=== PATIENT | male | born 1955 | race Caucasian/White ===

== ENCOUNTER 2016-08-22 12:21 | Emergency (ER) | payer BC ==
[2016-08-22] MEDS ORDERED: MECLIZINE 12.5 MG TABLET PO STA (14:45)
[2016-08-22] MEDS ORDERED: MECLIZINE 12.5 MG TABLET PO ONE (14:50)
== END 2016-08-22 15:02 | disposition home or self-care (01) ==
DX: R42 Dizziness and giddiness (principal); H91.92 Unspecified hearing loss, left ear; I10 Essential (primary) hypertension; K43.9 Ventral hernia without obstruction or gangrene
CPT/HCPCS: 99283; A9270

== ENCOUNTER 2016-09-21 08:35 | Outpatient (CLI) | payer BC | END 2016-09-21 08:36 | disposition home or self-care (01) | DX: G47.33 Obstructive sleep apnea (adult) (pediatric) (principal) ==

== ENCOUNTER 2016-11-01 08:00 | Outpatient (CLI) | payer BC | END 2016-11-01 08:01 | disposition home or self-care (01) | DX: M25.522 Pain in left elbow (principal) ==

== ENCOUNTER 2016-11-21 06:56 | Outpatient (CLI) | payer BC | END 2016-11-21 06:57 | disposition home or self-care (01) | DX: Z79.899 Other long term (current) drug therapy (principal); E55.9 Vitamin D deficiency, unspecified ==

== ENCOUNTER 2017-05-04 09:45 | Outpatient (CLI) | payer BC ==
--- NOTE | 2017-05-04 10:42 | XRAY Report ---
THREE-VIEW RIGHT ELBOW: 05/04/2017 CLINICAL INDICATION: Pain. FINDINGS: AP, lateral, oblique views of the right elbow demonstrate no evidence of fracture or dislo cation. There is a tiny ossific body seen between the radius and the ulna, likely representing an ac cessory ossicle. There is no evidence of acute fracture. No effusion is seen. IMPRESSION: NO EVIDENCE OF FRACTURE. JOB #: [id number] EXT JOB #:[id number]
== END 2017-05-04 09:46 | disposition home or self-care (01) ==
LOC: DI 09:45
PROVIDERS: ATTEND Physician Assistant Medical
DX: M25.521 Pain in right elbow (principal)

== ENCOUNTER 2017-05-14 06:10 | Outpatient (CLI) | payer BC ==
[2017-05-14 06:31] LABS: BASOPHILS % (AUTO) 0.6 %; EOSINOPHILS # (AUTO) 0.9 10^3/uL (0.0-0.7); EOSINOPHILS % (AUTO) 10.7 %; HCT - HEMATOCRIT 49.1 % (42.0-52.0); HGB - HEMOGLOBIN 16.8 g/dL (14.0-18.0); LYMPHOCYTES % (AUTO) 24.7 %; MEAN CORPUSCULAR HEMOGLOBIN 30.4 pg (27.0-31.0); MEAN CORPUSCULAR HGB CONC 34.1 g/dL (32.0-36.0); MEAN PLATELET VOLUME 8.2 fL (7.4-11.4); MONOCYTES # (AUTO) 0.9 10^3/uL (0.0-1.0); MONOCYTES % (AUTO) 11.4 %; NEUTROPHILS # (AUTO) 4.3 10^3/uL (1.5-6.6); NEUTROPHILS % (AUTO) 52.6 %; NUCLEATED RED BLOOD CELLS AUTO 0.1 /100WBC; RED BLOOD COUNT 5.52 10^6/uL (4.70-6.10); RED CELL DISTRIBUTION WIDTH 13.3 % (12.0-15.0); UNCORRECTED WHITE BLOOD COUNT 8.1 x10^3/uL; WHITE BLOOD COUNT 8.1 x10^3/uL (4.8-10.8)
[2017-05-14 06:53] LABS: ALBUMIN/GLOBULIN RATIO 1.5 (1.0-2.2); BILIRUBIN,TOTAL 0.8 mg/dL (0.2-1.0); BUN - BLOOD UREA NITROGEN 17 mg/dL (6-20); CARBON DIOXIDE - CO2 23 mmol/L (21-32); CHLORIDE 106 mmol/L (101-111); CHOL/HDL RATIO 3.7 (<5.0); CHOLESTEROL 103 mg/dL; CREATININE 1.2 mg/dL (0.6-1.2); GFR - MDRD 62 (>89); GLUCOSE 109 mg/dL (70-100); HDL CHOLESTEROL 28 mg/dL; POTASSIUM 4.2 mmol/L (3.5-5.0); SODIUM 138 mmol/L (135-145); TOTAL PROTEIN 6.7 g/dL (6.7-8.2); TRIGLYCERIDES 102 mg/dL; VLDL CHOLESTEROL 20 mg/dL
== END 2017-05-14 06:11 | disposition home or self-care (01) ==
LOC: LAB 06:10
PROVIDERS: ATTEND Physician Assistant Medical
DX: Z12.5 Encounter for screening for malignant neoplasm of prostate (principal); E55.9 Vitamin D deficiency, unspecified; R73.9 Hyperglycemia, unspecified; E78.5 Hyperlipidemia, unspecified; I10 Essential (primary) hypertension; Z79.899 Other long term (current) drug therapy
CPT/HCPCS: 36415; 80053; 80061; 82306; 84153; 84443; 85025

== ENCOUNTER 2017-07-06 08:35 | Outpatient (CLI) | payer BC | END 2017-07-06 08:36 | disposition home or self-care (01) | LOC: SC 08:35 | PROVIDERS: ATTEND Nurse Practitioner Family | DX: G47.33 Obstructive sleep apnea (adult) (pediatric) (principal) | CPT/HCPCS: 99212; 99214 ==

== ENCOUNTER 2018-01-24 08:31 | Outpatient (CLI) | payer BC | END 2018-01-24 08:32 | disposition home or self-care (01) | LOC: SC 08:31 | PROVIDERS: ATTEND Nurse Practitioner Family | DX: G47.33 Obstructive sleep apnea (adult) (pediatric) (principal); R53.83 Other fatigue | CPT/HCPCS: 99212; 99214 ==

== ENCOUNTER → 2018-06-01 | Outpatient (CLI) | payer BC ==
[2018-06-01 13:11] LABS: BASOPHILS # (AUTO) 0.1 10^3/uL (0.0-0.1); BASOPHILS % (AUTO) 1.3 %; EOSINOPHILS # (AUTO) 0.8 10^3/uL (0.0-0.7); EOSINOPHILS % (AUTO) 11.4 %; HGB - HEMOGLOBIN 16.5 g/dL (14.0-18.0); LYMPHOCYTES # (AUTO) 1.4 10^3/uL (1.5-3.5); LYMPHOCYTES % (AUTO) 19.9 %; MEAN CORPUSCULAR HEMOGLOBIN 31.1 pg (27.0-31.0); MEAN CORPUSCULAR HGB CONC 35.1 g/dL (32.0-36.0); MEAN CORPUSCULAR VOLUME 88.8 fL (80.0-94.0); MEAN PLATELET VOLUME 8.6 fL (7.4-11.4); MONOCYTES # (AUTO) 0.7 10^3/uL (0.0-1.0); MONOCYTES % (AUTO) 9.9 %; NEUTROPHILS % (AUTO) 57.5 %; PLT - PLATELET COUNT 257 10^3/uL (130-450); RED BLOOD COUNT 5.31 10^6/uL (4.70-6.10); RED CELL DISTRIBUTION WIDTH 13.5 % (12.0-15.0)
[2018-06-01 13:33] LABS: ALBUMIN 4.1 g/dL (3.2-5.5); ALBUMIN/GLOBULIN RATIO 1.4 (1.0-2.2); ALKALINE PHOSPHATASE 83 IU/L (42-121); ALT ALANINE AMINOTRANSFERASE 26 IU/L (10-60); AST ASPARTATE AMINOTRANSFERASE 26 IU/L (10-42); BUN - BLOOD UREA NITROGEN 17 mg/dL (6-20); CALCIUM 9.2 mg/dL (8.5-10.3); CARBON DIOXIDE - CO2 27 mmol/L (21-32); CHLORIDE 106 mmol/L (101-111); CHOL/HDL RATIO 3.5 (<5.0); CHOLESTEROL 117 mg/dL; CREATININE 1.1 mg/dL (0.6-1.2); GFR - MDRD 68 (>89); GLUCOSE 103 mg/dL (70-100); HDL CHOLESTEROL 33 mg/dL; LDL CHOLESTEROL,CALCULATED 70 mg/dL; LDL/HDL RATIO 2.1 (<3.6); SODIUM 141 mmol/L (135-145); TOTAL PROTEIN 7.1 g/dL (6.7-8.2); VLDL CHOLESTEROL 14 mg/dL
[2018-06-01 14:26] LABS: HB2 TOTAL 17.7 g/dL; HEMOGLOBIN A1C 0.66 g/dL; HEMOGLOBIN A1C % 5.6 % (4.6-6.2)
== END ==
LOC: LAB.R 08:00
PROVIDERS: ATTEND Physician Assistant Medical
DX: Z00.00 Encounter for general adult medical examination without abnormal findings (principal); Z12.5 Encounter for screening for malignant neoplasm of prostate; Z79.899 Other long term (current) drug therapy; E55.9 Vitamin D deficiency, unspecified; R73.9 Hyperglycemia, unspecified; E66.3 Overweight; F32.9 Major depressive disorder, single episode, unspecified; E78.2 Mixed hyperlipidemia; I10 Essential (primary) hypertension
CPT/HCPCS: 80053; 80061; 82306; 83036; 83721; 84153; 85025

== ENCOUNTER 2018-08-11 01:40 | Emergency (ER) | payer BC ==
[2018-08-11 01:52] VITALS: BP 158/83
[2018-08-11] MEDS ORDERED: DEXAMETHASONE 10 MG/ML VIAL PO STA (02:00)
[2018-08-11] MEDS ORDERED: CHERRY SYRUP 10 ML UDC PO ONE (02:05)
--- NOTE | 2018-08-11 02:06 | ED Physician Documentation ---
History of Present Illness - Stated complaint Stated Complaint: ITCH ALL OVER,BEATA HANDS SWOLLEN - Chief complaint Chief Complaint: General - History obtained from History obtained from: Patient - History of Present Illness Timing: Today - Additonal information Additional information: 63-year-old male has been on a course of Septra for the past 14 days and took the last pill yesterday. Today he was at work at [employer] on the swing shift when he began to experience some swelling and itching in his hands and feet. He went into medical at [facility] with non-specific hand swelling. He developed worsening itching and swelling and itching in the feet and the backs of this thighs. He went home and his gave him some benadryl he took 50mg just before coming to the ED. He has not taken septra before and he was taking it to shrink and area on his back, that has become chronically infected, before removing it. He was otherwise well earlier today. Review of Systems Constitutional: denies: Fever Eyes: denies: Decreased vision Ears: denies: Ear pain Nose: denies: Rhinorrhea / runny nose, Congestion Throat: denies: Sore throat Respiratory: denies: Dyspnea, Cough GI: denies: Abdominal Pain, Nausea, Vomiting : denies: Dysuria, Frequency Skin: reports: Rash Musculoskeletal: reports: Extremity swelling. denies: Neck pain, Back pain Neurologic: denies: Generalized weakness, Focal weakness, Numbness PD PAST MEDICAL HISTORY - Past Medical History Past Medical History: No Cardiovascular: Hypertension, High cholesterol Respiratory: None Neuro: None Endocrine/Autoimmune: None GI: GERD HEENT: None Psych: None Musculoskeletal: None Derm: None - Past Surgical History Past Surgical History: Yes General: Other Ortho: Carpal Tunnel surgery, Other - Present Medications Home Medications: Ambulatory Orders Medication Instructions Recorded Confirmed Meclizine [Antivert] 25 mg PO Q6H PRN #15 tablet 08/22/16 predniSONE [Deltasone] 60 mg PO DAILY 7 Days tablet 08/22/16 predniSONE [Deltasone] 10 mg PO ONCE #26 tablet 08/11/18 - Allergies Allergies/Adverse Reactions: Allergies Allergy/AdvReac Type Severity Reaction Status Date / Time latex Allergy Rash Verified 08/11/18 01:51 - Social History Does the pt smoke?: No Smoking Status: Never smoker Does the pt drink ETOH?: No Does the pt have substance abuse?: No - Immunizations Immunizations are current?: Yes - POLST Patient has POLST: No PD ED PE NORMAL - Vitals Vital signs reviewed: Yes (hypertensive ) - General General: Alert and oriented X 3, No acute distress, Well developed/nourished - HEENT HEENT: Atraumatic, PERRL, EOMI - Neck Neck: Supple, no meningeal sign, No bony TTP - Cardiac Cardiac: RRR, No murmur - Respiratory Respiratory: No respiratory distress, Clear bilaterally - Abdomen Abdomen: Soft, Non tender - Back Back: No CVA TTP, No spinal TTP - Derm Derm: Other (The hands are swollen in a glove like distribution extending to the volar wrist with erythema and a dusky kendall color. I am not able to appreciate the same degree of involvment of the posterior thigh. ) - Extremities Extremities: No deformity - Neuro Neuro: Alert and oriented X 3, No motor deficit, No sensory deficit, Normal speech Eye Opening: Spontaneous Motor: Obeys Commands Verbal: Oriented GCS Score: 15 - Psych Psych: Normal mood, Normal affect Results - Vitals Vitals: Vital Signs - 24 hr 08/11/18 01:49 Temperature 36.6 C Heart Rate 85 Respiratory 17 Rate Blood Pressure 158/83 H O2 Saturation 98 Oxygen O2 Source Room air PD MEDICAL DECISION MAKING - ED course Complexity details: considered differential, d/w patient ED course: 63-year-old male recently on a course of Septra has developed swelling and itching in his hands and feet I suspect this is a reaction to the Septra. He has taking 50 mg of Benadryl at home prior to coming here and he is administered dexamethasone 10 mg orally here in the emergency department. We will place him on a course of prednisone as a taper to start tomorrow. I have encouraged patient to continue to take the Benadryl 25-50 mg every 6 hours for the next 2 days. Departure - Departure Disposition: 01 Home, Self Care Clinical Impression: Allergic drug reaction Qualifiers: Encounter type: initial encounter Qualified Code(s): T78.40XA - Allergy, unspecified, initial encounter Condition: Stable Instructions: ED Drug React Allergic Follow-Up: Vandana Monsalve PA-C [Primary Care Provider] - Prescriptions: predniSONE [Deltasone] 10 mg PO ONCE #26 tablet Comments: Today it appears you have had a reaction to Septra. These reactions can be fulminant and the recommendation is that you discontinue the use of the Septra and take Benadryl 25-50 mg every 6 hours for the next 2 days. In addition this morning were given dexamethasone 10 mg orally and a prescription for a prednisone taper.
== END 2018-08-11 02:18 | disposition home or self-care (01) ==
LOC: ED 01:40
DX: R22.9 Localized swelling, mass and lump, unspecified (principal); T36.8X5A Adverse effect of other systemic antibiotics, initial encounter; I10 Essential (primary) hypertension; E78.00 Pure hypercholesterolemia, unspecified
CPT/HCPCS: 99283; A9270

== ENCOUNTER 2019-01-31 08:15 | Outpatient (CLI) | payer BC | END 2019-01-31 08:16 | disposition home or self-care (01) | LOC: SC 08:15 | PROVIDERS: ATTEND Nurse Practitioner Family | DX: G47.33 Obstructive sleep apnea (adult) (pediatric) (principal) | CPT/HCPCS: 99212; 99213 ==

== ENCOUNTER 2019-05-18 06:58 | Outpatient (CLI) | payer BC ==
[2019-05-18 07:45] LABS: ALBUMIN 4.3 g/dL (3.2-5.5); ALBUMIN/GLOBULIN RATIO 1.4 (1.0-2.2); CALCIUM 9.5 mg/dL (8.5-10.3); CREATININE 1.2 mg/dL (0.6-1.2); TOTAL PROTEIN 7.3 g/dL (6.7-8.2)
[2019-05-18 07:52] LABS: BASOPHILS # (AUTO) 0.1 10^3/uL (0.0-0.1); BASOPHILS % (AUTO) 1.9 %; EOSINOPHILS # (AUTO) 0.9 10^3/uL (0.0-0.7); EOSINOPHILS % (AUTO) 12.4 %; HGB - HEMOGLOBIN 17.8 g/dL (14.0-18.0); LYMPHOCYTES # (AUTO) 1.6 10^3/uL (1.5-3.5); LYMPHOCYTES % (AUTO) 22.8 %; MEAN CORPUSCULAR HEMOGLOBIN 30.3 pg (27.0-31.0); MEAN CORPUSCULAR HGB CONC 33.8 g/dL (32.0-36.0); MEAN CORPUSCULAR VOLUME 89.8 fL (80.0-94.0); MEAN PLATELET VOLUME 10.4 fL (7.4-11.4); MONOCYTES # (AUTO) 0.8 10^3/uL (0.0-1.0); MONOCYTES % (AUTO) 11.4 %; NEUTROPHILS # (AUTO) 3.5 10^3/uL (1.5-6.6); NEUTROPHILS % (AUTO) 51.2 %; PLT - PLATELET COUNT 260 10^3/uL (130-450); RED BLOOD COUNT 5.87 10^6/uL (4.70-6.10); RED CELL DISTRIBUTION WIDTH 12.7 % (12.0-15.0); WHITE BLOOD COUNT 6.8 x10^3/uL (4.8-10.8)
[2019-05-18 08:03] LABS: T4 (THYROXINE) 5.99 ug/dL (6.09-12.23)
[2019-05-18 08:07] LABS: THYROID STIMULATING HORMONE 3.48 uIU/mL (0.34-5.60)
== END 2019-05-18 06:59 | disposition home or self-care (01) ==
LOC: LAB 06:58
PROVIDERS: ATTEND Family Medicine
DX: F07.81 Postconcussional syndrome (principal); G25.81 Restless legs syndrome; M54.5 Low back pain; F90.9 Attention-deficit hyperactivity disorder, unspecified type; E78.2 Mixed hyperlipidemia; I10 Essential (primary) hypertension; K21.9 Gastro-esophageal reflux disease without esophagitis
CPT/HCPCS: 36415; 80053; 84436; 84443; 84481; 85025

== ENCOUNTER 2020-01-15 09:13 | Outpatient (CLI) | payer BC ==
--- NOTE | 2020-01-15 10:14 | SLEEP CARE CONSULTATION ---
Information from patient questionnaire entered by Marisela Minor. I have reviewed and concur with the information entered by Marisela Minor. This document represents the service I personally performed and the decisions made by me, Kaycee Robles, RN, MSN, KELP OR SEAGRASS GATHERER. History of Present Illness Service Date and Time: 01/15/2020912 Previous diagnosis: Moderate, Obstructive Sleep Apnea-Hypopnea Syndrome AHI: 19.2 (in 2016) Reason for follow up: annual (last seen 2019) Equipment type: CPAP Equipment obtained from: [employer] (gettting supplies as needed) Mask style: Full face (new style working much better) Backup mask available: Yes (old mask ) Last cushion change: 2 weeks ago Prior sleep studies: Yes Year and Where: 2016 - [facility] Type of Sleep Study: Polysomnography CPAP Compliance Data - Data Reviewed with Patient Average duration of nightly device use: 7 Compliance rate %: 96.1 (180 days) Current pressure setting (cmH2O): 8 Humidity settin Heated hose settin Average residual AHI: 7.2 Central apnea: 3.5 Obstructive apnea: 2.1 Hypopnea: 1.6 Average large leak: 1 min 2 sec Subjective Patient concerns: reports: dry mouth, nose, throat (dry mouth, moderate , frequent - most nights). denies: aerophagia, mask discomfort, air blowing in eyes, mask leak noise, condensation in mask/hose, nasal congestion, epistaxis, other Observed to snore while using device: No Current pressure setting perceived as: comfortable On therapy, patient: reports: sleeping better, awakening more refreshed, being more awake and alert during the day, more rested overall. denies: drowsiness while driving Initial [place] Sleepiness Scale score: 8 (in 2016) Current [place] Sleepiness Scale score: 11 Allergies and Home Medications Home medication list reviewed: No (no changes stated) Review of Systems Review of systems same as previous: Yes Physical Exam Blood Pressure: 138/80 Cuff size: long Heart Rate: 58 O2 Saturation: 97 Height: 5 ft 7 in Weight: 207 lb Body Mass Index: 32.4 BMI Classification: Obese Impression and Plan 1. Obstructive Sleep Apnea-Hypopnea Syndrome, moderate, with good treatment compliance and mild elevation of residual AHI. On CPAP therapy, the patient has better sleep quality and is more rested overall. The patients pressure will be changed to autoCPAP 8-10 cmH20 For elevation of residual AHI. Patient advised to contact me if pressure change is uncomfortable so that it can be adjusted. Goals for apnea control discussed. Oral dryness can be reduced by adjusting humidity setting higher or heated hose lower or by adjusting both settings. Patient advised that chronic oral dryness can affect dental health and advised to follow up with dentist. In addition, there are oral dryness products that can be used to reduce dryness such as Biotene products, Smart mouth rinse etc. Patient to discuss best option with dentist at his dentist appointment next month. weight. Currently patients BMI is 32.1 obesity class . Obesity increases the risk of apnea, CPAP pressure requirements and overall health risks especially cardiovascular and diabetes. Thus patient is advised to lose weight. Weight loss can be done with reducing portion size, reducing refined foods and balancing content with vegetables, fruit and protein. In addition tracking food intake will allow awareness of how to modify diet to achieve weight loss goals. Also eating more slowly will allow more awareness of food intake and enjoyment of food while assisting patient to modify intake at each meal. A diet consultation can be helpful in achieving optimal weight loss goals. The BMI chart was reviewed. Patient encouraged to discuss their weight loss goals with their PCP and consider a referral to a lumber puller. The patient's CPAP pressure range should accommodate some weight loss. Symptoms to report for additional pressure adjustment discussed. Patient's apnea severity and rationale for treatment to reduce apnea, improve sleep quality and reduce cardiovascular and cerebrovascular events was reviewed. * * Changeauto CPAP pressure to 8-10 cmH2O * Implement methods to reduce oral dryness * Notify me if snoring with mask or feeling that the pressure is too much or too little * Attempt to lose weight * consider diet consultation * Call this office if any problems using CPAP * Return for follow up in 2 months , or sooner if concerns arise Visit Type: In Office Time Spent with Patient (minutes): 25 Provider Statement: I spent 100% of the Face to Face Visit with the patient with greater than 50% spent counseling the patient and coordination of care.
[2020-01-15 10:15] VITALS: BP 138/80
== END 2020-01-15 09:14 | disposition home or self-care (01) ==
LOC: SC 09:13
PROVIDERS: ATTEND Nurse Practitioner Family
DX: G47.33 Obstructive sleep apnea (adult) (pediatric) (principal); E66.9 Obesity, unspecified; Z68.32 Body mass index [BMI] 32.0-32.9, adult
CPT/HCPCS: 99212; 99214

== ENCOUNTER 2020-05-04 09:14 | Outpatient (CLI) | payer BC ==
[2020-05-04 10:08] VITALS: BP 150/74
--- NOTE | 2020-05-04 10:08 | SLEEP CARE CONSULTATION ---
Information from patient questionnaire entered by Marisela Minor. I have reviewed and concur with the information entered by Marisela Minor. This document represents the service I personally performed and the decisions made by me, Kaycee Robles, RN, MSN, [employer] MACHINE WELDER SETTER. History of Present Illness Service Date and Time: 05/04/2020913 Previous diagnosis: Moderate, Obstructive Sleep Apnea-Hypopnea Syndrome AHI: 19.2 (in 2016) Reason for follow up: other (6 week with pressure change) Equipment type: CPAP Equipment obtained from: [employer] (getting supplies as needed) Mask style: Full face Backup mask available: Yes (old mask ) Last cushion change: 10 days ago with filter Prior sleep [facility]: Yes [facility] HPI additional information: He forgot to complete sleep diaries. His spouse appointments are now less often and do not require his help now unless appointments in [place]. [place] a new [place] PCP to be seen next week. He also has a new [place] psychiatrist appointment for further evaluation of traumatic brain injury symptoms. Sleep Study - Results Prior sleep studies: Yes [facility] Compliance Data - Data Reviewed with Patient Average duration of nightly device use: 6.9 Compliance rate %: 93.3 Current pressure setting (cmH2O): 6-8 Humidity settin Heated hose settin Average residual AHI: 10.2 Central apnea: 3.0 Obstructive apnea: 2.7 Hypopnea: 4.5 Average large leak: 3 min 36 sec Subjective Patient concerns: denies: aerophagia, mask discomfort, air blowing in eyes, mask leak noise, condensation in mask/hose, nasal congestion, dry mouth, nose, throat, epistaxis, other Observed to snore while using device: No Current pressure setting perceived as: comfortable On therapy, patient: reports: sleeping better, awakening more refreshed, being more awake and alert during the day, more rested overall. denies: drowsiness while driving Initial [place] Sleepiness Scale score: 8 (in 2016) Current [place] Sleepiness Scale score: 6 Allergies and Home Medications Known drug allergies: Yes Home medication list reviewed: No (no changes ) Review of Systems Review of systems same as previous: Yes Physical Exam Blood Pressure: 150/74 (normal range in 120's/ 70-80) Cuff size: long Heart Rate: 76 O2 Saturation: 98 Height: 5 ft 7 in Weight: 207 lb 6.4 oz Body Mass Index: 32.5 BMI Classification: Obese Impression and Plan 1. Obstructive Sleep Apnea-Hypopnea Syndrome, moderate , with good treatment compliance and slightly better apnea control with recent pressure range. On CPAP therapy, the patient has better sleep quality and is more rested overall. He is feeling more rested with ability to obtain more sleep consistently. I again reviewed the goal of scheduling his spouses appointments that he has to attend later in day to allow him more sleep. After review of the past few visits and pressure ranges and residual AHI, it was noted that the lowest residual was at 8cmH20. The apneaa were higher residual in centrals. He is not awake when using CPAP. Thus I will change his CPAP pressure to 7cmH20. The patient would prefer to defer another manual titration study if possible. It is hoped this new pressure will bring his residual closer to 5 or lower. Since he has gained a few pounds, he is advised to lose weight as continued weight gain can affect his apnea and pressure needs. He is advised how reducing portions, eating slower and reducing refined foods can help reduce weight. Patient reports that he is pleased that his TBI symptoms are being addressed. Patient's apnea severity and rationale for treatment to reduce apnea, improve sleep quality and reduce cardiovascular and cerebrovascular events was reviewed. I also reviewed the benefit of consistent device use of CPAP for hypertension. 2. Elevated blood pressure, monitors occasionally, today slightly elevated so advised to monitor at home later when rested 5-10 minutes and if still elevated place call to PCP. Risks of elevated blood pressure discussed. * Change auto CPAP pressure to 7 cmH2O * Notify me if snoring with mask or feeling that the pressure is too much or too little * Attempt to lose weight * Call this office if any problems using CPAP * Return for follow up in 1 -2 months , or sooner if concerns arise Visit Type: In Office Provider Statement: I spent 100% of the Face to Face Visit with the patient with greater than 50% spent counseling the patient and coordination of care.
== END 2020-05-04 09:15 | disposition home or self-care (01) ==
LOC: SC 09:14
PROVIDERS: ATTEND Nurse Practitioner Family
DX: G47.33 Obstructive sleep apnea (adult) (pediatric) (principal); R03.0 Elevated blood-pressure reading, without diagnosis of hypertension; E66.9 Obesity, unspecified; Z68.32 Body mass index [BMI] 32.0-32.9, adult
CPT/HCPCS: 99212; 99214

== ENCOUNTER 2020-06-17 08:30 | Outpatient (CLI) | payer BC ==
--- NOTE | 2020-06-17 09:06 | SLEEP CARE CONSULTATION ---
Information from patient questionnaire entered by Gretta Hays. I have reviewed and concur with the information entered by Gretta Hays. This document represents the service I personally performed and the decisions made by , Marycarmen Worley ARNP. History of Present Illness Service Date and Time: 06/17/2020829 Previous diagnosis: Moderate, Obstructive Sleep Apnea-Hypopnea Syndrome AHI: 19.2 Reason for follow up: one month (with pressure change) Equipment type: CPAP Equipment obtained from: [employer] (getting supplies as needed) Mask style: Full face Backup mask available: Yes (old mask) Last cushion change: 2 months Prior sleep studies: Yes Year and Where: 2015 [facility] Type of Sleep Study: Polysomnography HPI additional information: GALILEA LOREDO was diagnosed to have moderate, AHI 19.2, obstructive sleep apnea- hypopnea syndrome and returned today for CPAP therapy one month pressure change follow-up. Sleep Study - Results Prior sleep studies: Yes Year and Where: 2015 [facility] CPAP Compliance Data - Data Reviewed with Patient Average duration of nightly device use: 6 hours 49 minutes Compliance rate %: 100 Current pressure setting (cmH2O): 7 Humidity settin Heated hose settin Average residual AHI: 10.7 Central apnea: 3.1 Obstructive apnea: 2.6 Hypopnea: 4.9 Average large leak: 0 seconds Subjective Patient concerns: denies: aerophagia, mask discomfort, air blowing in eyes, mask leak noise, condensation in mask/hose, nasal congestion, dry mouth, nose, throat, epistaxis, other Observed to snore while using device: No Current pressure setting perceived as: comfortable On therapy, patient: reports: sleeping better, awakening more refreshed, being more awake and alert during the day, more rested overall. denies: drowsiness while driving Initial [place] Sleepiness Scale score: 8 Current [place] Sleepiness Scale score: 8 Allergies and Home Medications Drug allergies reviewed: Yes (latex) Home medication list reviewed: Yes (no changes) Review of Systems Review of systems same as previous: Yes (no changes) Physical Exam Heart Rate: 77 O2 Saturation: 98 Height: 5 ft 7 in Weight: 207 lb Body Mass Index: 32.4 BMI Classification: Obese Impression and Plan 1. Obstructive Sleep Apnea-Hypopnea Syndrome, moderate, with excellent treatment compliance and poor apnea control with elevated residual AHI. On CPAP therapy, the patient has better sleep quality and is more rested overall. I will adjust his pressure to 8-10 cm H2O to try to reduce his residual AHI. He will need to follow up in 1-2 months to check effectiveness. He is to call for any aerophagia or if pressure feels too much or too little. Patient's apnea severity and rationale for treatment to reduce apnea, improve sleep quality and reduce cardiovascular and cerebrovascular events was reviewed. I also reviewed the benefit of consistent device use of CPAP for hypertension. * Change autoCPAP pressure to 8-10 cmH2O * Notify me if snoring with mask or feeling that the pressure is too much or too little * Attempt to lose weight * Call this office if any problems using CPAP * Return for follow up in 1-2 months, or sooner if concerns arise Counseling Topics: Spare mask, Weight loss health impact Visit Type: In Office Time Spent with Patient (minutes): 17 Provider Statement: I spent 100% of the Face to Face Visit with the patient with greater than 50% spent counseling the patient and coordination of care.
== END 2020-06-17 08:31 | disposition home or self-care (01) ==
LOC: SC 08:30
PROVIDERS: ATTEND Nurse Practitioner Family
DX: G47.33 Obstructive sleep apnea (adult) (pediatric) (principal); E66.9 Obesity, unspecified; Z68.32 Body mass index [BMI] 32.0-32.9, adult
CPT/HCPCS: 99212; 99213

== ENCOUNTER 2020-08-21 08:44 | Outpatient (CLI) | payer BC ==
--- NOTE | 2020-08-21 09:27 | SLEEP CARE CONSULTATION ---
Information from patient questionnaire entered by Marisela Minor. I have reviewed and concur with the information entered by Marisela Minor. This document represents the service I personally performed and the decisions made by , Marycarmen Worley ARNP. History of Present Illness Service Date and Time: 08/21/2020 0844 Previous diagnosis: Moderate, Obstructive Sleep Apnea-Hypopnea Syndrome AHI: 19.2 (in 2016) Reason for follow up: other (2 month ) Equipment type: CPAP Equipment obtained from: [employer] (getting supplies as needed) Mask style: Full face Backup mask available: Yes (old mask) Last cushion change: 2 weeks Prior sleep studies: Yes Year and Where: 2016 - [facility] HPI additional information: GALILEA LOREDO was diagnosed to have moderate, AHI 19.2, obstructive sleep apnea- hypopnea syndrome and returned today for CPAP therapy two month follow-up. CPAP Compliance Data - Data Reviewed with Patient Average duration of nightly device use: 7 hr 51 min Compliance rate %: 93.3 Current pressure setting (cmH2O): 7 Humidity settin Heated hose settin Average residual AHI: 11.6 Average large leak: 0 Subjective Patient concerns: reports: dry mouth, nose, throat (dry mouth). denies: aerophagia, mask discomfort, air blowing in eyes, mask leak noise, condensation in mask/hose, nasal congestion, epistaxis, other Observed to snore while using device: No Current pressure setting perceived as: too low On therapy, patient: reports: sleeping better, awakening more refreshed, being more awake and alert during the day, more rested overall. denies: drowsiness while driving Initial [place] Sleepiness Scale score: 8 (in 2016) Current [place] Sleepiness Scale score: 4 Allergies and Home Medications Drug allergies reviewed: Yes (latex) Home medication list reviewed: Yes (no changes) Review of Systems Review of systems same as previous: Yes (no changes) Physical Exam Heart Rate: 59 O2 Saturation: 98 Height: 5 ft 7 in Weight: 211 lb Body Mass Index: 33.0 BMI Classification: Obese Impression and Plan 1. Obstructive Sleep Apnea-Hypopnea Syndrome, moderate, with good treatment compliance and fair apnea control with elevated residual AHI. On CPAP therapy, the patient has better sleep quality and is more rested overall. The patients pressure will be changed to autoCPAP 8-10 cmH20 For elevation of residual AHI. Patient advised to contact me if pressure change is uncomfortable so that it can be adjusted. Goals for apnea control discussed. Patient is concerned that his machine is starting to have some issues since it did not update the pressure change from his last visit. Patient was advised that his CPAP machine is due for an update in January this year. He was encouraged to make an appointment then to replace his machine. He voiced understanding and agreement. He has been having some mouth dryness. He has had to get up during the night to drink water. I advised him to increase his humidity setting to 4 or 5 since he is currently at 3. Oral dryness can be reduced by adjusting humidity setting higher or heated hose lower or by adjusting both settings. Printed instructions given on how to change humidity and heated hose settings with rationale explaining why to change. Patient's apnea severity and rationale for treatment to reduce apnea, improve sleep quality and reduce cardiovascular and cerebrovascular events was reviewed. I also reviewed the benefit of consistent device use of CPAP for hypertension. * Change auto CPAP pressure to 8-10 cmH2O * Notify me if snoring with mask or feeling that the pressure is too much or too little * Attempt to lose weight * Call this office if any problems using CPAP * Return for follow up in 5 months to update machine, or sooner if concerns arise Counseling Topics: Spare mask, Weight loss health impact Visit Type: In Office Time Spent with Patient (minutes): 20 Provider Statement: I spent 100% of the Face to Face Visit with the patient with greater than 50% spent counseling the patient and coordination of care.
== END 2020-08-21 08:45 | disposition home or self-care (01) ==
LOC: SC 08:44
PROVIDERS: ATTEND Nurse Practitioner Family
DX: G47.33 Obstructive sleep apnea (adult) (pediatric) (principal); E66.9 Obesity, unspecified; Z68.33 Body mass index [BMI] 33.0-33.9, adult; R68.2 Dry mouth, unspecified
CPT/HCPCS: 99212; 99213

== ENCOUNTER 2021-01-12 08:00 | Outpatient (CLI) | payer BC ==
[2021-01-12 12:27] LABS: BASOPHILS # (AUTO) 0.1 10^3/uL (0.0-0.1); BASOPHILS % (AUTO) 1.3 %; EOSINOPHILS # (AUTO) 0.7 10^3/uL (0.0-0.7); EOSINOPHILS % (AUTO) 9.6 %; HCT - HEMATOCRIT 48.9 % (42.0-52.0); HGB - HEMOGLOBIN 16.3 g/dL (14.0-18.0); LYMPHOCYTES # (AUTO) 1.7 10^3/uL (1.5-3.5); LYMPHOCYTES % (AUTO) 23.5 %; MEAN CORPUSCULAR HEMOGLOBIN 30.6 pg (27.0-31.0); MEAN CORPUSCULAR HGB CONC 33.3 g/dL (32.0-36.0); MEAN CORPUSCULAR VOLUME 91.7 fL (80.0-94.0); MEAN PLATELET VOLUME 10.5 fL (7.4-11.4); MONOCYTES # (AUTO) 0.7 10^3/uL (0.0-1.0); NEUTROPHILS % (AUTO) 55.3 %; PLT - PLATELET COUNT 278 10^3/uL (130-450); RED BLOOD COUNT 5.33 10^6/uL (4.70-6.10); RED CELL DISTRIBUTION WIDTH 12.9 % (12.0-15.0); WHITE BLOOD COUNT 7.2 x10^3/uL (4.8-10.8)
[2021-01-12 12:49] LABS: ALBUMIN 4.2 g/dL (3.2-5.5); ALBUMIN/GLOBULIN RATIO 1.8 (1.0-2.2); ALKALINE PHOSPHATASE 62 IU/L (42-121); ALT ALANINE AMINOTRANSFERASE 25 IU/L (10-60); AST ASPARTATE AMINOTRANSFERASE 20 IU/L (10-42); BILIRUBIN,TOTAL 0.7 mg/dL (0.2-1.0); BUN - BLOOD UREA NITROGEN 21 mg/dL (6-20); CALCIUM 9.4 mg/dL (8.5-10.3); CARBON DIOXIDE - CO2 27 mmol/L (21-32); CHLORIDE 106 mmol/L (101-111); CHOL/HDL RATIO 3.2 (<5.0); CHOLESTEROL 102 mg/dL; CREATININE 1.1 mg/dL (0.6-1.2); GFR - MDRD 67 (>89); GLUCOSE 108 mg/dL (70-100); HDL CHOLESTEROL 32 mg/dL; LDL CHOLESTEROL,CALCULATED 54 mg/dL; LDL/HDL RATIO 1.7 (<3.6); SODIUM 142 mmol/L (135-145); TOTAL PROTEIN 6.6 g/dL (6.7-8.2); TRIGLYCERIDES 79 mg/dL; VLDL CHOLESTEROL 16 mg/dL
[2021-01-12 12:57] LABS: THYROID STIMULATING HORMONE 2.7 uIU/mL (0.34-5.60)
[2021-01-12 13:01] LABS: ESTIMATED AVERAGE GLUCOSE 105 mg/dL (70-100); HEMOGLOBIN A1c% 5.3 % (4.27-6.07)
== END 2021-01-12 23:59 | disposition home or self-care (01) ==
LOC: LAB.WCP 08:00
PROVIDERS: ATTEND Family Medicine
DX: M54.16 Radiculopathy, lumbar region (principal); G25.81 Restless legs syndrome; M54.5 Low back pain; G89.29 Other chronic pain; G47.33 Obstructive sleep apnea (adult) (pediatric); R73.9 Hyperglycemia, unspecified; E55.9 Vitamin D deficiency, unspecified; E78.2 Mixed hyperlipidemia; I10 Essential (primary) hypertension; K21.9 Gastro-esophageal reflux disease without esophagitis
CPT/HCPCS: 36415; 80053; 80061; 83036; 83721; 84153; 84443; 85025

== ENCOUNTER 2021-09-03 08:00 | Outpatient (CLI) | payer BC | END 2021-09-03 23:59 | disposition home or self-care (01) | LOC: LAB.N 08:00 | PROVIDERS: ATTEND Nurse Practitioner | DX: U07.1 COVID-19 (principal) ==

== ENCOUNTER 2021-12-13 09:10 | Outpatient (CLI) | payer BC ==
--- NOTE | 2021-12-13 14:21 | XRAY Report ---
PROCEDURE: Foot 3 View LT INDICATIONS: FOOT Pain, left TECHNIQUE: 3 views of the foot were acquired. COMPARISON: None. FINDINGS: Bones: No fractures or dislocations. Hallux valgus deformity and small bunion. No suspicious bony le sions. Soft tissues: No tibiotalar joint effusion. Achilles tendon appears normal. IMPRESSION: Hallux valgus deformity and small bunion. Reviewed by: Sanjeev Hernandez MD on 12/13/2021 2:19 PM PDT Approved by: Sanjeev Hernandez MD on 12/13/2021 2:19 PM PDT Station ID: [id number]
== END 2021-12-13 09:11 | disposition home or self-care (01) ==
LOC: DI 09:10
PROVIDERS: ATTEND Physician Assistant Medical
DX: M20.12 Hallux valgus (acquired), left foot (principal); M21.612 Bunion of left foot

== ENCOUNTER 2023-09-16 07:51 | Outpatient (CLI) | payer OTHER ==
--- NOTE | 2023-09-18 21:04 | MRI Report ---
PROCEDURE: Lumbar Spine WO INDICATIONS: LUMBAR RADICULOPATHY TECHNIQUE: Noncontrast sagittal T1 spin echo and T2 fast echo, sagittal STIR, axial T1 and T2 fast spin echo thr ough the lumbar spine. In cases with scoliosis, additional coronal T2 fast spin echo may be performe d. COMPARISON: Lumbar spine 08/01/2014 FINDINGS: Image quality: Excellent. Alignment and Curvature: There is normal bony alignment. Bone Marrow: Marrow is of normal overall signal. No acute vertebral body compression fractures. Spinal Cord: Conus medullaris terminates at the L1 level. Visualized cord demonstrates normal signa l and size. Paraspinous Soft Tissues: No paravertebral masses. Discs: Scattered disc desiccation most severe from L2-3 through L4-5. T12-L1: No disc bulge, spinal stenosis or foraminal narrowing. No interval change. L1-L2: No disc bulge, spinal stenosis or foraminal narrowing. No interval change. L2-L3: Minimal disc bulge without spinal stenosis or foraminal narrowing. Facet and ligamentum fla vum hypertrophy as well as epidural lipomatosis are present. L3-L4: Mild disc bulge with mild spinal stenosis. Mild bilateral foraminal narrowing slightly progr essive. Facet and ligamentum flavum hypertrophy as well as epidural lipomatosis are present. L4-L5: Mild disc bulge with mild spinal stenosis. No foraminal narrowing. Facet and ligamentum flav um hypertrophy are present. L5-S1: Mild disc bulge without spinal stenosis or foraminal narrowing. No interval change. IMPRESSION: Stable interval exam demonstrating minimal scattered areas of degenerative change as above. Reviewed by: Terra Rivera MD on 09/18/2023 9:02 PM PST Approved by: Terra Rivera MD on 09/18/2023 9:02 PM PST Station ID: [id number]
== END 2023-09-16 07:52 | disposition home or self-care (01) ==
LOC: DI 07:51
PROVIDERS: ATTEND Internal Medicine
DX: M47.816 Spondylosis without myelopathy or radiculopathy, lumbar region (principal); M51.37 Other intervertebral disc degeneration, lumbosacral region; M51.36 Other intervertebral disc degeneration, lumbar region; M48.061 Spinal stenosis, lumbar region without neurogenic claudication

== ENCOUNTER 2023-10-12 09:23 | Outpatient (CLI) | payer OTHER ==
--- NOTE | 2023-10-13 09:14 | Ultrasound Report ---
PROCEDURE: Arterial Duplex Upr Ext BL INDICATIONS: HAND DISCOLORATION TECHNIQUE: Color and pulse Doppler interrogation was performed of both upper extremity arterial systems, with im age documentation. COMPARISON: None. FINDINGS: Right upper extremity: Subclavian artery (mid): 106 cm/sec, with triphasic flow. Axillary artery: 126 cm/sec, with triphasic flow. Brachial artery (mid): 121 cm/sec, with triphasic flow. Radial artery (proximal): 74 cm/sec, with triphasic flow. Radial artery (mid): 66 cm/sec, with triphasic flow. Radial artery (distal): 62 cm/sec, with triphasic flow. Ulnar artery (proximal): 56 cm/sec, with triphasic flow. Ulnar artery (mid): 53 cm/sec. with triphasic flow. Ulnar artery (distal): 49 cm/sec, with triphasic flow. Enrique-scale imaging description: Widely patent vessels Left upper extremity: Subclavian artery (mid): 126 cm/sec, with triphasic flow. Axillary artery: 150 cm/sec, with triphasic flow. Brachial artery (mid): 113 cm/sec, with triphasic flow. Radial artery (proximal): 73 cm/sec, with triphasic flow. Radial artery (mid): 72 cm/sec, with triphasic flow. Radial artery (distal): 68 cm/sec, with triphasic flow. Ulnar artery (proximal): 46 cm/sec, with triphasic flow. Ulnar artery (mid): 45 cm/sec. with triphasic flow. Ulnar artery (distal): 45 cm/sec, with triphasic flow. Enrique-scale imaging description: Widely patent vessels IMPRESSION: Unremarkable bilateral duplex upper extremity arterial ultrasound. Reviewed by: Madi Garcia MD on 10/13/2023 9:13 AM [facility] Approved by: Madi Garcia MD on 10/13/2023 9:13 AM PST Station ID: [id number]
== END 2023-10-12 09:24 | disposition home or self-care (01) ==
LOC: DI 09:23
PROVIDERS: ATTEND Internal Medicine
DX: I73.9 Peripheral vascular disease, unspecified (principal)
CPT/HCPCS: 93930